=== PATIENT | male | born 1970 | race African-American/Black ===

== ENCOUNTER 2020-09-22 15:32 | Emergency (ER) | payer OTHER, SELFPAY ==
[2020-09-22 15:45] VITALS: BP 151/80; PULSE 108; RESP 20; TEMP 37.1; O2SAT 95; BMI 29.8
--- NOTE | 2020-09-22 16:11 | XR_ITS ---
EXAMINATION: XR CHEST CLINICAL INFORMATION: Cough COMPARISON: Chest x-ray 07/14/2012 TECHNIQUE: Frontal view of the chest was obtained. FINDINGS: Cardiac silhouette is normal in size. The lungs are well aerated. There is no lobar consolidation. No pleural effusion or pneumothorax. XR/XR chest 1V IMPRESSION: Stable examination demonstrating no acute pulmonary pathology.
--- NOTE | 2020-09-22 17:24 | ED_ITS ---
HPI - URI/Sore Throat General Chief Complaint: Upper Respiratory Symptoms Stated Complaint: Flu like symptoms/SOB Time Seen by Provider: 09/22/20 16:11 History of Present Illness HPI Narrative: patient complains of shortness of breath typical of prior asthma exacerbations as well as a cough for 2 days which is mild and dry, he has mild shortness of breath now, no fever no chills, the cough has gotten worse in the past 2 days, there is no leg pain or calf pain and no nausea Related Data Previous Rx's Medication Instructions Recorded albuterol sulfate 2 puff INHALATION Q4-6H PRN #6.7 g 09/22/20 doxycycline hyclate 100 mg PO BID 7 Days #14 cap 09/22/20 prednisone 60 mg PO DAILY 5 Days #15 tab 09/22/20 Allergies Allergy/AdvReac Type Severity Reaction Status Date / Time No Known Allergies Allergy Verified 09/22/20 15:43 Review of Systems Review of Systems: no fever no chills no dizziness no weakness no headache no sore throat no neck pain no abdominal pain no nausea no vomiting or diarrhea, no skin rash, no leg pain no calf pain no leg swelling Yes all other systems are reviewed and are negative [facility] Past Medical History Attestation statement: The following information was validated with the patient. [facility] Narrative: patient has history of asthma and diabetes Medical History (Updated 09/23/20 @ 00:02 by Ramakrishna Briseno) Asthma Social History Social History Advance Directives: No Advance Directives Information Provided: No Physical Exam Vital Signs: Vital Signs: Last Vital Signs Temp 98.7 F 09/22/20 15:45 Pulse 108 H 09/22/20 15:45 Resp 20 09/22/20 15:45 BP 151/80 H 09/22/20 15:45 Pulse Ox 95 09/22/20 15:45 Body Mass Index 29.8 patient is A&O x3, comfortable, relaxed and cooperative speaking full sentences, no respiratory distress The eyes no redness no discharge The neck is supple The chest had bilateral faint wheezes symmetrical with good air entry The heart no murmur auscultated The abdomen soft nontender The extremities no edema, no calf swelling or tenderness The skin no rash Neuro no focal deficit Course Course Course Narrative: point of care was checked at patient request and was 147, patient says he has not been compliant with his metformin but he has made an appointment with his doctor next week so will be seeing his doctor in several days Chest x-ray was normal Patient was treated with antibiotic for possible bronchitis, his asthma was treated with steroids and an inhaler and he is informed it is very possible that his cough could be from COVID as well MDM - URI/Sore Throat Lab Data Labs: Lab Results 09/22/20 Range/Units 16:29 POC Glucose 126 H (60-115) mg/dL Discharge Plan Discharge Clinical Impression: Asthma, Bronchitis Patient Disposition: Home, Self-Care Additional Instructions: I heard some wheezing on her exam so we are treating for asthma with albuterol and prednisone We will call you with COVID results when available Chest x-ray was normal Prednisone, part of her asthma treatment, may raise her sugar which was 147 today Follow as scheduled with primary doctor next week Return to ER any time any worse condition or any concerns Prescriptions: New doxycycline hyclate 100 mg capsule 100 mg PO BID 7 Days Qty: 14 RF: 0 prednisone 20 mg tablet 60 mg PO DAILY 5 Days Qty: 15 RF: 0 albuterol sulfate 90 mcg/actuation HFA aerosol inhaler 2 puff inhalation Q4-6H PRN (Reason: shortness of breath or wheezing) Qty: 6.7 RF: 0 Interventions: ED Discharge Assessment Last Done: 09/22/20 17:39 Discharge Date/Time: 09/22/20 17:39
[2020-09-22 17:35] LABS: Glucose, Whole Blood 126 mg/dL (60-115)
== END 2020-09-22 17:39 | disposition home or self-care (01) ==
PROVIDERS: Physician Assistant Medical; Emergency Provider Emergency Medicine Emergency Medical Services; PCP Family Medicine
DX: J45.909 Unspecified asthma, uncomplicated (principal); J40 Bronchitis, not specified as acute or chronic; Z20.828 Contact with and (suspected) exposure to other viral communicable diseases; Z79.899 Other long term (current) drug therapy
CPT/HCPCS: 71045; 82947; 99283; U0003

== ENCOUNTER → 2023-01-21 13:49 | Outpatient (BNVA) | payer OTHER, SELFPAY | PROVIDERS: PCP Family Medicine; Visit Provider Urology | DX: N52.9 Male erectile dysfunction, unspecified (principal) | CPT/HCPCS: 99202 ==

== ENCOUNTER 2024-07-28 23:31 | Emergency (ER) | payer MEDICARE, MEDICAID, SELFPAY ==
--- NOTE | ~2024-07-28 | XR_ITS ---
EXAMINATION: XR CHEST CLINICAL INFORMATION: Difficulty breathing, cough, wheeze COMPARISON: None available. TECHNIQUE: Frontal view of the chest was obtained. FINDINGS: Ill-defined streaky consolidation in the right lower lobe. No pneumothorax or pleural effusion. Cardiomediastinal silhouette within normal limits. Soft tissue and osseous structures are within normal limits. XR/XR chest 1V IMPRESSION: On this limited view, there is possible consolidation in the right lower lobe. Electronically signed by: Chetan Edwards DO 07/29/2024 12:52 AM EDT
[2024-07-28 23:47] VITALS: BP 147/75; PULSE 99; RESP 18; TEMP 37.6; O2SAT 94; BMI 29.6
[2024-07-29 00:40] LABS: Influenza A PCR NEGATIVE (Negative); Influenza B PCR NEGATIVE (Negative); Resp Syncy Virus RNA Qual PCR NEGATIVE (Negative); SARS COV2 PCR INHOUSE NEGATIVE (Negative)
[2024-07-29 01:18] VITALS: BP 143/84; PULSE 84; RESP 18; O2SAT 96
--- NOTE | 2024-07-29 01:35 | ED.URI ---
HPI - URI/Sore Throat General Chief Complaint: Upper Respiratory Symptoms Stated Complaint: diff breathing Time Seen by Provider: 07/29/24 01:28 Source: patient Mode of arrival: ambulatory Limitations: no limitations History of Present Illness ED Provider: Dr. Monika Zamudio HPI Narrative: Patient comes to the emergency room complaining of shortness of breath. Patient states that for the last couple of days he has been using his inhaler more than usual. Patient known to have asthma. Patient used his nebulization machine several times without any significant relief. Patient denies any coughing or known exposures to sick people. Related Data Home Medications ?Medication ?Instructions ?Recorded ?Confirmed lisinopril 10 mg tablet 10 mg PO DAILY 01/21/23 01/21/23 metformin 500 mg tablet,extended 500 mg PO DAILY 01/21/23 01/21/23 release 24 hr Previous Rx's ?Medication ?Instructions ?Recorded albuterol sulfate 90 mcg/actuation 2 puff inhalation Q4-6H PRN 09/22/20 aerosol inhaler shortness of breath or wheezing #6.7 grams tadalafil 5 mg tablet 5 mg PO DAILY sexual activity 90 01/21/23 days #90 tabs prednisone 50 mg tablet 50 mg PO DAILY #5 tabs 07/29/24 Allergies Allergy/AdvReac Type Severity Reaction Status Date / Time Seasonal Allergies Allergy Eye Verified 07/28/24 23:50 Swelling Review of Systems Review of Systems: Constitutional : No Weight loss, No Fever, No Chills, No Night Sweats, No Fatigue, No Malaise ENT/Mouth : No Hearing loss, No Ear Pain, No Nasal Congestion, No Sinus Pain, No Hoarseness, No sore throat, No Rhinorrhea, No Swallowing Difficulty Eyes: No Eye Pain, No Swelling, No Redness, No Foreign Body, No Discharge, No Vision Changes Cardiovascular : No Chest Pain, No SOB, No Dyspnea on Exertion, No Orthopnea, No Edema, No Palpitations Respiratory : No Cough, No Sputum, complaining of wheezing and dyspnea Gastrointestinal : No Nausea, No Vomiting, No Diarrhea, No Constipation, No abdominal Pain, No Hematochezia, No Melena Genitourinary : no irregular bleeding, No Dysuria, No Urinary Frequency, No Hematuria, No Urinary Incontinence, No Urgency, No Flank Pain, No Urinary Flow Changes, No Hesitancy Musculoskeletal : No joint pain, No Myalgias, No Joint Swelling Skin : No Skin Lesions, No rash Neuro : No Weakness, No Numbness, No Paresthesias, No Loss of Consciousness, No Dizziness, No Headache Psych : No Anxiety/Panic, No Depression, No SI/HI/AH/VH, No Social Issues, Heme/Lymph: No Bruising, No Bleeding,No Lymphadenopathy Endocrine : No Polyuria, No Polydipsia, No Temperature Intolerance [facility] Past Medical History Medical History Asthma Dyslipidemia Lateral epicondylitis HTN (hypertension) Hyperlipidemia Type II diabetes mellitus, uncontrolled Diabetes mellitus, type II Asthma Social History Social History Smoked in Last 30 Days: No Use of substances other than those prescribed or required for medical reasons: Yes Substance Use Type: Marijuana Substance Use Frequency: Chronic Longstanding Advance Directives: No Advance Directives Information Provided: No Physical Exam Vital Signs: Vital Signs: Last Vital Signs Temp 99.1 F 07/29/24 03:35 Pulse 102 H 07/29/24 03:35 Resp 16 07/29/24 03:35 BP 142/79 H 07/29/24 03:35 Pulse Ox 92 07/29/24 03:35 O2 Del Method Room Air 07/29/24 03:35 BMI result Body Mass Index 29.6 Const: Other: Appearance: Alert. Oriented X3. No acute distress. Eyes: Pupils equal, round and reactive to light. ENT: Pharynx normal. Neck: Normal inspection. Neck supple. No lymph nodes noted. No crepitus CVS: Normal heart rate and rhythm. Pulses normal. Normal S1 and S2 Respiratory: No respiratory distress. Bilateral wheezing, moderate air movement. No rales Abdomen: Soft and nontender. No rigidity. No distention. Skin: Skin warm and dry. Normal skin color. Normal skin turgor. Extremities: No lower extremity edema. No Lacerations. No Rash Neuro: Oriented X 3. No motor deficit. No sensory deficit. Moving all extremities. No slurred speech. CN 2 through 12 grossly intact Psych: calm, cooperative, normal affect Course Course Course Narrative: Patient receiving IV Solu-Medrol, magnesium and nebulization treatments. Medications Administered Discontinued Medications Generic Name Dose Route Start Last Admin Trade Name Freq PRN Reason Stop Dose Admin Albuterol Sulfate 7.5 mg/ 10 mg 07/29/24 02:25 07/29/24 02:43 Albuterol Sulfate 2.5 mg INHALE 07/29/24 02:26 10 mg ONCE ONE Administration Magnesium Sulfate/Dextrose 1 gm in 100 mls @ 100 mls/hr 07/29/24 01:32 07/29/24 03:20 Magnesium Sulfate/D5w IV 07/29/24 02:31 Infused ONCE ONE Infusion Methylprednisolone Sodium Succinate 125 mg 07/29/24 01:32 07/29/24 01:49 Methylprednisolone Sod Succ 125 Mg/2 Ml Vial IVPUSH 07/29/24 01:33 125 mg ONCE ONE Administration Medical Decision Making Medical Decision Making MDM Narrative: -patient received IV treatment, patient feeling much better. -my interpretation of labs, negative for influenza COVID and RSV. -I considered doing a chest x-ray. However, patient has not had any URI symptoms other than wheezing/asthma exacerbation. No signs of pneumonia. Clear lung sounds on auscultation after IV treatment -patient was ambulated around the emergency room, oxygen saturation between 92 and 97% no desaturation. -vitals remained stable, patient feels well -patient states that he has all of his medications at home/inhalers including albuterol for the neb machine -patient ready and stable for discharge Differential Diagnosis Differential Diagnoses: The differential diagnosis associated with the presentation includes (Asthma exacerbation, viral illness as above-mentioned) Admission/Observation Consideration of admission/observation: Escalation of care including admission/observation considered (Given patient's symptoms, observation was considered) Lab Data [facility] Lab Attestation statement: I reviewed the patient's lab results. Labs: Lab Results 07/28/24 Range/Units 23:57 Influenza Type A (PCR) NEGATIVE (Negative) Influenza Type B (PCR) NEGATIVE (Negative) RSV RNA Qual (PCR) NEGATIVE (Negative) SARS-CoV-2 RNA (RT-PCR) NEGATIVE (Negative) Critical Care Time Critical Care Time Critical Care Time: Yes Total Critical Care Time: 45 Attestation: I have personally provided critical care time. Time includes review of lab data, radiology results, discussion with consultants, and monitoring for potential decompensation. Intervention performed as documented. Discharge Plan Discharge Clinical Impression: Asthma exacerbation Patient Disposition: Home, Self-Care Instructions: Asthma (ED) Additional Instructions: Please follow-up with your primary care physician op[facility]. If you have any worsening or new symptoms, please return to the emergency room or call 911 Prescriptions: New prednisone 50 mg tablet 50 mg PO DAILY Qty: 5 0RF No Action albuterol sulfate 90 mcg/actuation HFA aerosol inhaler 2 puff inhalation Q4-6H PRN (Reason: shortness of breath or wheezing) Qty: 6.7 0RF metformin 500 mg tablet extended release 24 hr 500 mg PO DAILY lisinopril 10 mg tablet 10 mg PO DAILY tadalafil 5 mg tablet 5 mg PO DAILY 90 Days Qty: 90 0RF Stand Alone Forms: Work/School Release Print Language: Kyrgyz
[2024-07-29] MEDS: methylPREDNISolone Sod Succ 125 MG/2 ML VIAL IVPUSH (01:49)
[2024-07-29] MEDS: Magnesium Sulfate/D5W 1 GM/100 ML PIGGYBACK IV (01:49)
[2024-07-29 02:35] VITALS: PULSE 90; RESP 18; O2SAT 95
[2024-07-29] MEDS: Albuterol Sulfate 7.5 MG, Albuterol Sulfate (0.083%) 2.5 MG 10 MG INHALE (02:43)
[2024-07-29 03:35] VITALS: BP 142/79; PULSE 102; RESP 16; TEMP 37.3; O2SAT 92
--- NOTE | 2024-07-29 03:59 | MHC.EDTECH ---
Ambulated around ED with Pt, sats remained at 92% and HR 114-115. Pt states he feels well, no SOB/dizziness. Pt back in room 5 laying in stretcher, call faustin within reach. Dr. Zamudio aware.
[2024-07-29 04:28] VITALS: BP 142/79; PULSE 99; RESP 16; TEMP 37.3; O2SAT 98
== END 2024-07-29 04:29 | disposition home or self-care (01) ==
PROVIDERS: Emergency Provider Emergency Medicine; PCP Family Medicine
DX: J45.901 Unspecified asthma with (acute) exacerbation (principal); R06.02 Shortness of breath; E11.9 Type 2 diabetes mellitus without complications; I10 Essential (primary) hypertension; E78.5 Hyperlipidemia, unspecified; Z79.84 Long term (current) use of oral hypoglycemic drugs; Z79.899 Other long term (current) drug therapy; Z03.818 Encounter for observation for suspected exposure to other biological agents ruled out
CPT/HCPCS: 0241U; 71045; 94640; 96365; 96366; 96375; 99284; 99285; J2919; J3475

== ENCOUNTER 2025-04-19 11:23 | Outpatient (REF) | payer MEDICARE, MEDICAID, SELFPAY ==
[2025-04-19 13:39] LABS: Alanine Aminotransferase 27 U/L (0-40); Albumin Level 4.6 g/dL (3.5-5.0); Alkaline Phosphatase 59 U/L (39-117); Anion Gap 10 (12-20); Aspartate Amino Transferase 23 U/L (5-37); Blood Urea Nitrogen 11 mg/dL (9-16); Calcium 9.8 mg/dL (8.4-10.2); Carbon Dioxide 29 mmol/L (22-29); Chloride 103 mmol/L (96-108); Cholesterol 207 mg/dL (<200); Estimated Glomerular Filt Rate > 60; HDL Cholesterol 47 mg/dL (>40); Potassium 4.2 mmol/L (3.3-5.1); Sodium 138 mmol/L (135-145); Total Protein 7.3 g/dL (6.5-8.0); Triglycerides 61 mg/dL (<150)
[2025-04-19 13:44] LABS: Hemoglobin A1C 385.6820 umol/L; Total Hemoglobin (HGBA1C) 3978.3759 umol/L
[2025-04-19 13:52] LABS: Microalbum/Creatinine Ratio Ur 11.5 ug/mg cr (<30)
== END 2025-04-19 11:24 | disposition home or self-care (01) ==
LOC: HO.HHCL 11:23
PROVIDERS: PCP Family Medicine; Visit Provider Family Medicine
DX: E11.9 Type 2 diabetes mellitus without complications (principal); N52.9 Male erectile dysfunction, unspecified; R63.4 Abnormal weight loss
CPT/HCPCS: 36415; 80048; 80061; 80076; 82043; 82570; 83036; 84403

== ENCOUNTER 2025-08-01 14:03 | Outpatient (AMB) | payer MEDICARE, MEDICAID, SELFPAY ==
--- NOTE | 2025-08-01 14:22 | A.OFFVIS_ITS ---
Intake Visit Reasons: erectile dysfunction follow up Intake Note: Patient is present for erectile dysfunction follow up Urology Medications: Tadalafil Blood Thinner: none Labs done: 04/19/2025 Total Testosterone 459 Diamond Cleaver Required: No Accompanied by: Self / Same As Patient Allergies Seasonal Allergies Allergy (Verified 08/01/25 14:23) Eye Swelling HPI Comments Details: Connor is a pleasant male. He is a patient of Dr. Bucio. He is seen for the following urologic conditions - erectile dysfunction Previously instructed to minimize THC used to less than 10 mg per week Was maximized on oral therapy with 5 mg daily and 20 mg on demand Baseline testosterone 05/12 450 HbA1c 11 % Primary recommendation is to focus on control of diabetes Erectile Dysfunction He presents today for - further evaluation erectile dysfunction Current treatment includes - had upset stomach with prior use of sildenafil At the time of initial evaluation he experiences - erections are partial but not adequate for vaginal penetration - does not reach climax Symptoms have been present for/since - progressive since 1999 Nocturnal erections do occur Prior therapies include - vacuum pump Treatment side effects include - upset stomach Associated Medical Conditions include diabetic, hypertension Physical Performance Status is able to walk 200 yd and can ascend 2 flights of stairs easily without breathlessness Atherosclerosis Cardiovascular Disease Risk - not completed Medications include(s) metformin, lisinopril, uses daily marijuana Investigations include - Therapeutic plan includes - maximum daily oral tadalafil with advice to minimize THC use to less than 10- 20 mg weekly PFSH Medical History Asthma Dyslipidemia Lateral epicondylitis HTN (hypertension) Hyperlipidemia Type II diabetes mellitus, uncontrolled Diabetes mellitus, type II Asthma Social History Substance Use Type: Marijuana Review of Systems Const Denies chills and Denies fever(s) Card Reports no additional complaints and Denies syncope Resp Denies cough GI Denies abdominal pain and Denies heartburn Reports as per HPI and Denies change in libido Neuro Denies syncope Psych Denies change in libido Endo Denies change in libido Physical Exam Const General: cooperative, healthy appearing, comfortable and no acute distress Orientation/consciousness: patient oriented x3 HEENT Face and sinus: Yes normal facial exam Mouth: moist mucous membranes Neck Neck: Yes normal visual inspection, Yes full ROM and Yes trachea midline Chest Chest palpation & inspection: normal inspection of the chest Resp Effort & Inspection: normal respiratory effort, able to speak in complete sentences and no respiratory distress GI Inspection: Yes normal to inspection Back/Spine/Pelvis Cervical Spine: normal cervical lordosis Thoracic/Lumbar Spine: thoracic and lumbar spine normal to inspection Skin General skin exam: no rashes or lesions noted Neuro General: patient oriented x3, gait normal, tone normal and moves all extremities Extrem General: Yes normal to inspection and Yes capillary refill normal Assessment & Plan Assessment & Plan (1) Erectile dysfunction: Code(s): N52.9 - Male erectile dysfunction, unspecified Category: Medical Plan Continue tadalafil Work on diabetes control Medications: Refilled tadalafil 5 mg PO DAILY 90 tabs 3RF sexual activity 90 days N52.9 - Male erecti le dysfunction, unspecified Patient Instructions: This note is constructed using voice recognition software. While every effort has been made to ensure accuracy seismic prospecting observer errors may have been included. Imaging studies, laboratory and physical exam results were discussed and reviewed in detail. No major barriers to patient understanding were identified. An opportunity to ask questions regarding the treatment plan was provided. All questions were answered. The patient expressed understanding and agreement with the above treatment plan. The patient is aware they should contact our office by phone for worsening of their current condition or the appearance of new urologic symptoms. Compliance is encouraged with any medications and followup testing that is ordered. It is a privilege to participate in the urologic care of your patient. If you have any questions or concerns regarding treatment for the above conditions, or other urologic issues, please do not hesitate to contact me. The office telephone contact is [phone]. Sincerely, Dr Fausto Gudino MD, [facility] - Urology Compassionate Specialist Care for the Genitourinary System Coding Level of Care Code Est Pt Level 3 (84603) Complex EM visit Add On G2211 Diagnoses Erectile dysfunction N52.9
== END 2025-08-01 14:58 | disposition home or self-care (01) ==
LOC: HO.HUSH 14:04
PROVIDERS: PCP Family Medicine; Visit Provider Urology
DX: N52.9 Male erectile dysfunction, unspecified (principal)
CPT/HCPCS: 99213; G2211

== ENCOUNTER → 2025-08-01 14:03 | Outpatient (BNVA) | payer MEDICARE, MEDICAID, SELFPAY | PROVIDERS: PCP Family Medicine; Visit Provider Urology | DX: Z71.2 Person consulting for explanation of examination or test findings (principal); N52.9 Male erectile dysfunction, unspecified | CPT/HCPCS: 99212 ==

== ENCOUNTER 2025-10-09 03:00 | Emergency (ER) | payer MEDICARE, MEDICAID, SELFPAY ==
--- NOTE | ~2025-10-09 | XR_ITS ---
CLINICAL HISTORY: SOB; Cough 2 view chest x-ray. Comparison: CR/SR - XR CHEST 1 VIEW - 07/29/24 00:02 EDT Findings: The lungs appear clear. There is no consolidation, effusion, or pneumothorax. Cardiomediastinal silhouette is within normal limits. IMPRESSION: No acute cardiopulmonary abnormality. This document has been electronically signed by: Clark Dowling MD on 10/09/2025 04:15:55
--- NOTE | 2025-10-09 03:04 | ECG_ITS ---
Test Reason : SOB Blood Pressure : */* mmHG Vent. Rate : 103 BPM Atrial Rate : 103 BPM P-R Int : 168 ms QRS Dur : 62 ms QT Int : 326 ms P-R-T Axes : 67 56 72 degrees QTcB Int : 427 ms Sinus tachycardia Otherwise normal ECG No previous ECGs available Referred By: Leighton Darby Electronically Signed By: EDIE NINO MD
[2025-10-09 03:10] VITALS: BP 154/82; BP 172/86; PULSE 106; PULSE 110; RESP 20; TEMP 36.9; O2SAT 91; O2SAT 92; BMI 21.9
--- NOTE | 2025-10-09 03:12 | ED_ITS ---
HPI - URI/Sore Throat General Chief Complaint: Upper Respiratory Symptoms Stated Complaint: SOB Family has the flu, 92% RA, 95% onn 2L Time Seen by Provider: 10/09/25 03:02 Source: patient and EMS Mode of arrival: EMS Limitations: no limitations History of Present Illness ED Provider: Leighton HOLLAND HPI Narrative: The patient is a 54-year-old male with a history of asthma who presents to the Emergency Department with acute shortness of breath that began yesterday (Thursday). The patient notes that several family members were recently diagnosed with influenza. He has been using his inhaler, however reports he feels this has made the symptoms worse. The patient endorses subjective fever but has not taken his temperature. He denies vomiting, diarrhea, cough, sore throat, runny nose, pleurisy, chest pain, or abdominal pain. Patient reports nonproductive cough. Related Data Home Medications ?Medication ?Instructions ?Recorded ?Confirmed lisinopril 10 mg tablet 10 mg PO DAILY 01/21/2303/10 metformin 500 mg tablet,extended 500 mg PO DAILY 01/2101/21/23 release 24 hr Previous Rx's ?Medication ?Instructions ?Recorded albuterol sulfate 90 mcg/actuation 2 puff inhalation Q 4-6H PRN 09/22/20 aerosol inhaler shortness of breath or wheez ing #6.7 grams prednisone 50 mg tablet 50 mg PO DAILY #5 tabs 07/29 tadalafil 5 mg tablet 5 mg PO DAILY sexual activit y 90 08/01/25 days #90 tabs prednisone 20 mg tablet 60 mg (3 x 20 mg) PO DAILY 5 days 10/09/25 #15 tabs Allergies Allergy/AdvReac Type Severity Reaction Status Date / Time Seasonal Allergies Allergy Eye Verified 10/09/25 03:12 Swelling Review of Systems Review of Systems: Yes all other systems are reviewed and are negative PMFSH Past Medical History Medical History Asthma Dyslipidemia Lateral epicondylitis HTN (hypertension) Hyperlipidemia Type II diabetes mellitus, uncontrolled Diabetes mellitus, type II Asthma Social History Social History Smoked in Last 30 Days: Yes Use of substances other than those prescribed or required for medical reasons: Yes Substance Use Type: Marijuana Advance Directives: No Advance Directives Information Provided: No Do you have a plan to hurt others: No Plan Physical Exam Vital Signs: Vital Signs: Last Vital Signs Temp 99.8 F 10/09/25 04:31 Pulse 117 H 10/09/25 04:31 Resp 19 10/09/25 04:31 BP 159/66 H 10/09/25 04:31 Pulse Ox 94 10/09/25 04:31 O2 Del Method Room Air 10/09/25 04:31 BMI result Body Mass Index 21.9 CONSTITUTIONAL: The patient appears non-toxic, well nourished and in no acute distress. Vital signs as documented. HEAD: Atraumatic, normocephalic. EYES: EOMs grossly intact, pupils equal, conjunctiva clear, no exudate. ENT: Nares patent, no discharge. Airway patent, no audible stridor, visible mucosa is pink and moist without noted lesions. NECK: Trachea is midline, no obvious masses or gross abnormalities. CHEST: Symmetric movement, normal appearance. LUNGS: LS diminished throughout, with expiratory wheezing noted in the upper lung poe. Non-labored work of breathing at rest with FiO2 CARDIAC: Regular Rhythm, S1/S2 appreciated, no murmurs, rubs or gallops. ABDOMEN: Abdomen soft and non-tender x4 quadrants, no palpable masses or organomegaly. : Deferred. EXTREMITIES: Normal tone, moves all extremities spontaneously without reported pain. No obvious acute injury or deformity noted. NEURO: Alert and oriented x3, CN II-XII appear grossly intact. Cerebellar Functioning grossly intact. No obvious sensory or motor deficits. Speech clear and appropriate. PSYCH: normal affect, appropriate eye contact, fluid speech, with appropriate response to questioning. No reported suicidality or homicidality. SKIN: Warm, dry, color appropriate, normal turgor. No rashes noted. Medications Administered Discontinued Medications Generic Name Dose Route Start Last Admin Trade Name Freq PRN Reason Stop Dose Admin Albuterol Sulfate 5 mg/ 0 mg 10/09/25 03:30 10/09/25 03:35 Albuterol/Ipratropium 3 ml INHALE 10/09/25 03:31 7.5 each ONCE ONE Administration Prednisone 60 mg 10/09/25 03:11 10/09/25 03:17 Prednisone 20 Mg Tablet PO 10/09/25 03:12 60 mg ONCE ONE Administration Medical Decision Making Medical Decision Making [facility] Narrative: 3:14 AM 10/09/2025 (Bev HOLLAND): The patient is a 54-year-old male with a history of asthma who presents to the Emergency Department with acute shortness of breath that began yesterday (Thursday). The patient notes that several family members were recently diagnosed with influenza. He has been using his inhaler, however reports he feels this has made the symptoms worse. The patient endorses subjective fever but has not taken his temperature. He denies vomiting, diarrhea, cough, sore throat, runny nose, pleurisy, chest pain, or abdominal pain. Patient reports nonproductive cough. On exam the patient has diminished breath sounds throughout, with expiratory wheezes in the apices bilaterally, exam is otherwise unremarkable. The patient will be evaluated with viral swab, EKG, and chest x-ray, and we will treat with prednisone and DuoNeb. 4:07 AM 10/09/2025 (Bev HOLLAND): Patient is positive for influenza, patient is currently receiving his DuoNeb. At this time the patient's breathing already looks improved, lung sounds have improved. Pending continued improvement the patient will be discharged with prednisone burst, supportive care, and outpatient follow up. Admission/Observation Consideration of admission/observation: Escalation of care including admission/observation considered Lab Data [facility] Lab Attestation statement: I reviewed the patient's lab results. Labs: Lab Results 10/09/25 Range/Units 03:18 Influenza Type A (PCR) POSITIVE A (Negative) Influenza Type B (PCR) NEGATIVE (Negative) RSV RNA Qual (PCR) NEGATIVE (Negative) SARS-CoV-2 RNA (RT-PCR) NEGATIVE (Negative) Independent Interpretation I performed an independent interpretation of an: EKG (EKG shows sinus tachycardia with a rate of 103, no evidence of acute ischemia, no ST elevation, no ectopy. QTC 427. No old for comparison.) Radiology Impression Discussion of test interpretation with radiology: I have reviewed the radiologist's reading. Radiologist Impression: 2 view chest x-ray. Comparison: CR/SR - XR CHEST 1 VIEW - 07/29/24 00:02 EDT Findings: The lungs appear clear. There is no consolidation, effusion, or pneumothorax. Cardiomediastinal silhouette is within normal limits. IMPRESSION: No acute cardiopulmonary abnormality. This document has been electronically signed by: Clark Dowling MD on 10/09/2025 04:15:55 External Record Review External record reviewed: Outpatient record and Prior outpatient labs Prescription Management I considered prescription management with: Pain Medication Discharge Plan Discharge Clinical Impression: Influenza A, Asthma Patient Disposition: Home, Self-Care Instructions: Influenza (ED) Additional Instructions: Thank you for choosing [facility]'s Emergency Department for your care today. Thankfully your symptoms and vital signs improved after interventions in the ED. Your chest x-ray and EKG are reassuring. At this time there is no indication for admission to the hospital or continued ED observation, and it is safe to discharge you home. You tested positive for influenza, which is likely causing an exacerbation of your underlying asthma. Please take prednisone daily for the next 5 days as directed. Please continue using your albuterol inhaler. You should take alternating (staggered) doses of ibuprofen 600mg and Tylenol 1000mg every 4 hours as needed for any additional fever, congestion, cough, or pain. Please stay well hydrated and get plenty of rest. Please follow up with your primary care physician for re-evaluation, additional management of your symptoms, and continued preventative care. If you do not have a primary care physician, please call the [facility] at [phone] to establish a new primary care physician. While waiting to establish your new primary care physician, you can call our [facility] at [phone] for non-emergency needs. Please return to the emergency department if you develop a severe or sudden change in your symptoms, a fever over 100.4 that does not improve with Tylenol or Ibuprofen, recurrent vomiting, or any other new or worsening symptoms or concerns. Prescriptions: New prednisone 20 mg tablet 60 mg PO DAILY 5 Days Qty: 15 0RF No Action albuterol sulfate 90 mcg/actuation HFA aerosol inhaler 2 puff inhalation Q4-6H PRN (Reason: shortness of breath or wheezing) Qty: 6.7 0RF prednisone 50 mg tablet 50 mg PO DAILY Qty: 5 0RF metformin 500 mg tablet extended release 24 hr 500 mg PO DAILY lisinopril 10 mg tablet 10 mg PO DAILY tadalafil 5 mg tablet 5 mg PO DAILY 90 Days Qty: 90 3RF Referrals: Harriett Bucio MD [Primary Care Provider, [facility]] Clinical Impression: Influenza A Print Language: Mohawk
[2025-10-09 03:25] VITALS: O2SAT 92
[2025-10-09] MEDS: Albuterol Sulfate 5 MG, Albuterol/Iprat 2.5/0.5MG 3 ML 3 ML INHALE (03:35)
[2025-10-09 03:37] VITALS: PULSE 102; RESP 24; O2SAT 95
[2025-10-09 03:59] LABS: Resp Syncy Virus RNA Qual PCR NEGATIVE (Negative); SARS COV2 PCR INHOUSE NEGATIVE (Negative)
[2025-10-09 04:31] VITALS: BP 159/66; PULSE 117; RESP 19; TEMP 37.7; O2SAT 94
[2025-10-09 05:00] VITALS: BP 159/66; PULSE 117; RESP 19; TEMP 37.7; O2SAT 94
== END 2025-10-09 05:01 | disposition home or self-care (01) ==
PROVIDERS: Physician Assistant; Emergency Provider Student in an Organized Health Care Education/Training Program; PCP Family Medicine
DX: J10.1 Influenza due to other identified influenza virus with other respiratory manifestations (principal); R06.02 Shortness of breath; R05.9 Cough, unspecified; Z03.818 Encounter for observation for suspected exposure to other biological agents ruled out
CPT/HCPCS: 71046; 87637; 93005; 94640; 99284; 99285

== ENCOUNTER → 2025-10-09 03:04 | Outpatient (BNV) | payer MEDICARE, MEDICAID, SELFPAY | PROVIDERS: Emergency Provider Student in an Organized Health Care Education/Training Program; PCP Family Medicine; Visit Provider Internal Medicine Cardiovascular Disease | DX: R00.0 Tachycardia, unspecified (principal) | CPT/HCPCS: 93010 ==

== ENCOUNTER → 2025-10-09 03:11 | Outpatient (BNV) | payer MEDICARE, MEDICAID, SELFPAY | PROVIDERS: Emergency Provider Student in an Organized Health Care Education/Training Program; PCP Family Medicine; Visit Provider Radiology Diagnostic Radiology | DX: R05.9 Cough, unspecified (principal); R06.02 Shortness of breath | CPT/HCPCS: 71046 ==

== ENCOUNTER 2025-10-11 15:38 | Emergency (ER) | payer MEDICARE, MEDICAID, SELFPAY ==
--- NOTE | ~2025-10-11 | XR_ITS ---
CLINICAL HISTORY: SOB Chest Radiographs, 2 views Comparison: CR - XR CHEST 2V - 10/09/25 03:26 EST CR/SR - XR CHEST 1 VIEW - 07/29/24 00:02 EDT Findings: No cardiomegaly. Normal mediastinal contours. No pneumothorax. Faint opacity in the right lower lobe at the lung base. Peribronchial thickening. No pleural effusion. Normal upper abdomen. No fracture. Impression: Faint opacity in the right lower lobe at the lung base may indicate pneumonia or be secondary to adjacent thick-walled bronchi. Peribronchial thickening may indicate bronchitis. This document has been electronically signed by: Domenica Stark MD on 10/11/2025 17:57:04
[2025-10-11 15:55] VITALS: BP 130/84; BP 131/79; PULSE 108; PULSE 120; RESP 14; TEMP 37.6; O2SAT 90; O2SAT 94; BMI 27.1
--- NOTE | 2025-10-11 16:54 | PC.NURSE ---
pT c/o feeling dehydrated, subjective fevers, body ahces, chills x 3 days.
[2025-10-11 16:56] VITALS: BP 124/80; PULSE 107; RESP 18; TEMP 37.2; O2SAT 93
--- NOTE | 2025-10-11 16:56 | PC.NURSE ---
no vomiting. taking PO.
--- NOTE | 2025-10-11 17:10 | ED_ITS ---
HPI - URI/Sore Throat General Chief Complaint: Upper Respiratory Symptoms Stated Complaint: flu A+ yesterday, flu symptoms Time Seen by Provider: 10/11/25 15:51 History of Present Illness ED Provider: julian GALO Narrative: Patient brought in by ambulance from home flu positive testing done at outpatient clinic yesterday still feels unwell vague shortness of breath. EMS put on nasal cannula for comfort no hypoxemia noted. Used albuterol inhaler at home few times. Related Data Home Medications ?Medication ?Instructions ?Recorded ?Confirmed lisinopril 10 mg tablet 10 mg PO DAILY 01/21/23 04/0 03/10 metformin 500 mg tablet,extended 500 mg PO DAILY 01/2101/21/23 release 24 hr Previous Rx's ?Medication ?Instructions ?Recorded albuterol sulfate 90 mcg/actuation 2 puff inhalation Q 4-6H PRN 09/22/20 aerosol inhaler shortness of breath or wheez ing #6.7 grams prednisone 50 mg tablet 50 mg PO DAILY #5 tabs 07/29 tadalafil 5 mg tablet 5 mg PO DAILY sexual activit y 90 08/01/25 days #90 tabs prednisone 20 mg tablet 60 mg (3 x 20 mg) PO DAILY 5 days 10/09/25 #15 tabs Allergies Allergy/AdvReac Type Severity Reaction Status Date / Time Seasonal Allergies Allergy Eye Verified 10/11/25 15:58 Swelling PMFSH Past Medical History Medical History Asthma Dyslipidemia Lateral epicondylitis HTN (hypertension) Hyperlipidemia Type II diabetes mellitus, uncontrolled Diabetes mellitus, type II Asthma Social History Social History Smoked in Last 30 Days: No Use of substances other than those prescribed or required for medical reasons: No Substance Use Type: Marijuana Advance Directives: No Advance Directives Information Provided: No Physical Exam Exam: Exam: EXAM: Gen: Alert, awake, well appearing, well hydrated. Head: Atraumatic Eyes: Anicteric, Normal conjunctiva. ENT: Moist mucosa, no pallor. ? Neck: Supple. Skin: ?No observable rash or bruising on exposed or examined skin Respiratory: Breathing comfortably, No distress.Clear to auscultation bilaterally, symmetric chest expansion, No wheeze, rales, ronchi. Cardiovascular: Regular rate and rhythm. No murmurs or rub. Well perfused periphery, warm extremities. No edema. ? Abdominal: No focal tenderness. Soft, no objective distension. No palpable masses or obvious organomegaly. ?No guarding, no rebound tenderness or other peritoneal findings. : No flank tenderness. Neuro: Alert. Gross movement of all extremities intact. ? Psych: Calm. Cooperative. MSK: No grossly visible deformity. Vital signs: See flowsheet Vital Signs: Vital Signs: Last Vital Signs Temp 98.9 F 10/11/25 16:56 Pulse 107 H 10/11/25 16:56 Resp 18 10/11/25 16:56 BP 124/80 10/11/25 16:56 Pulse Ox 93 10/11/25 16:56 O2 Del Method Room Air 10/11/25 16:56 Oxygen Flow Rate 4 10/11/25 15:55 BMI result Body Mass Index 27.1 Medications Administered Discontinued Medications Generic Name Dose Route Start Last Admin Trade Name Freq PRN Reason Stop Dose Admin Acetaminophen 650 mg 10/11/25 17:47 10/11/25 17:51 Acetaminophen 325 Mg Tablet PO 10/11/25 17:48 650 mg ONCE STA Administration Medical Decision Making Medical Decision Making MDM Narrative: Medical Decision Makin-year-old male with a history of asthma, ED, here with mild shortness of breath in the setting of flu positive test yesterday. No measured hypoxemia below 90% no distress reported by EMS. Saturating well here on my exam on room air. Not ill or toxic looking. Mild fever exam reassuring Patient's chest x-ray was read with possible subtle bronchial thickening versus pneumonia. Given the patient has no hypoxia or respiratory distress wheeze or focal lung findings on exam I do not think he has treatment with antibiotics indicated at this time. Preliminary Favored Differential Diagnosis: Viral syndrome, dehydration, influenza, asthma among additional considered etiologies Testing Interpreted Independently: ?No focal infiltrate on x-ray Radiology or Lab testing Results Reviewed: ?See below for details Consults: ?See below for details Independent Historians/External Chart Reviews: ?See below for details Social Determinants of Health Impacting MDM/Planning: ?See below for details Discharge Plan Discharge Clinical Impression: Influenza A Patient Disposition: Home, Self-Care Instructions: Influenza (ED) Additional Instructions: DISCHARGE DIAGNOSES: Influenza HISTORY OF PRESENTATION: ?Shortness of breath in the setting of influenza EMERGENCY DEPARTMENT COURSE,TESTS, TREATMENTS: While in the ED today you had an x-ray that showed no focal signs of pneumonia. You had no low oxygen level and your examination was reassuring DISCHARGE MEDICATIONS: ?[We have made no changes to your regular medication regimen] FOLLOW-UP: ?Call your primary or general physician soon as possible to discuss your symptoms, your ED visit and to discuss follow up plans Call your primary doctor for follow up INSTRUCTIONS ?& RETURN PRECAUTIONS: If any symptoms change first call your primary physician, if it is after-hours your primary doctors office should have a provider waste elimination you can speak with. If the symptoms are severe or very con cerning to you then call 911 or return to the ED. Return if you develop severe shortness of breath or distress breathing Lalit Aguilera MD Emergency Physician [facility] Prescriptions: No Action albuterol sulfate 90 mcg/actuation HFA aerosol inhaler 2 puff inhalation Q4-6H PRN (Reason: shortness of breath or wheezing) Qty: 6.7 0RF prednisone 20 mg tablet 60 mg PO DAILY 5 Days Qty: 15 0RF prednisone 50 mg tablet 50 mg PO DAILY Qty: 5 0RF metformin 500 mg tablet extended release 24 hr 500 mg PO DAILY lisinopril 10 mg tablet 10 mg PO DAILY tadalafil 5 mg tablet 5 mg PO DAILY 90 Days Qty: 90 3RF Print Language: Iraqi
[2025-10-11 18:11] VITALS: BP 124/80; PULSE 107; RESP 18; TEMP 37.2; O2SAT 93
== END 2025-10-11 18:11 | disposition home or self-care (01) ==
PROVIDERS: Emergency Provider Emergency Medicine; PCP Family Medicine
DX: J10.1 Influenza due to other identified influenza virus with other respiratory manifestations (principal); R06.02 Shortness of breath; E11.9 Type 2 diabetes mellitus without complications; E78.5 Hyperlipidemia, unspecified; I10 Essential (primary) hypertension; J45.909 Unspecified asthma, uncomplicated; Z79.84 Long term (current) use of oral hypoglycemic drugs; Z79.899 Other long term (current) drug therapy
CPT/HCPCS: 71046; 99283; 99284

== ENCOUNTER → 2025-10-11 16:58 | Outpatient (BNV) | payer MEDICARE, MEDICAID, SELFPAY | PROVIDERS: Emergency Provider Emergency Medicine; PCP Family Medicine; Visit Provider Radiology Diagnostic Radiology | DX: R06.02 Shortness of breath (principal) | CPT/HCPCS: 71046 ==